=== PATIENT | male | born 1955 | race Caucasian/White ===

== ENCOUNTER 2022-03-24 11:13 | Emergency (ER) | payer BC, SELFPAY ==
[2022-03-24 11:55] VITALS: BP 130/80; PULSE 78; RESP 18; TEMP 36.8; O2SAT 98; BMI 27.3
[2022-03-24 12:03] VITALS: BP 130/80; PULSE 78; RESP 18; TEMP 36.8; O2SAT 98
--- NOTE | 2022-03-24 12:08 | EXP.UTC ---
Discharge Plan Referrals Follow up/Referrals: Bonnie Amezcua MD [Primary Care Provider] - See instructions Activity Restrictions/Add. Instructions Additional Instructions/Restrictions: You were tested for today for COVID19 your test result should be back in the next 24-48 hours, you may check your results on the [facility] My Health Portal Clinical Impressions Clinical Impression: Encounter for laboratory testing for COVID-19 virus Instructions Patient Instructions: COVID-19 Viral Test Discharge ED Provider: Gladys Barnard [facility] [place] General Stated complaint: covid test Mode of Arrival: Ambulatory Source of Information: Patient Limitations: No Limitations Time Seen by Provider: 03/24/22 12:08 Description of Symptoms (Recalled from Triage Doc. by RN): PATIENT NEEDING COVID TEST FOR SUGERY HEENT Symptoms (Recalled from RN notes): No Resp Symptoms (Recalled from RN notes): No Skin Symptoms (Recalled from RN notes): No MS Symptoms (Recalled from RN notes): No Functional Status (Recalled from RN notes): WNL History of Present Illness Provider Complaint: Patient states that he is needing a covid test for hip surgery denies any symptoms Related Data Allergies Allergy/AdvReac Type Severity Reaction Status Date / Time No Known Allergies Allergy Verified 03/24/22 12:03 Worker's Comp Is this a Worker's Comp case?: [facility] History Smoking Status: Never smoker alcohol intake: never current occupational status: disabled Travel in the last 8 weeks: None ROS Obtained: Yes All systems reviewed & no additional complaints except as documented and Yes Systems reviewed as appropriate & no additional complaints except as documented Constitutional Constitutional: Reports system reviewed and no additional complaints, except as documented and Reports as per HPI ENT Ears, Nose, Mouth, and Throat: Reports system reviewed and no additional complaints, except as documented and Reports as per HPI Cardiovascular Cardiovascular: Reports system reviewed and no additional complaints, except as documented and Reports as per HPI Respiratory Respiratory: Reports system reviewed and no additional complaints, except as documented and Reports as per HPI Physical Exam General General appearance: alert and in no apparent distress Respiratory Respiratory exam: Present normal lung sounds bilaterally; Absent respiratory distress Cardiovascular Cardiovascular exam: Present regular rate and normal rhythm Neurological Exam Neurological exam: Present alert and oriented X3 Medical Decision Making Jason Inquiry Pt receiving controlled substance: No Jason was queried for this patient: No Vital Signs: 03/24/22 11:55 03/24/22 12:03 Temperature 98.2 F 98.2 F Temperature Source Oral Pulse Rate 78 Pulse Rate [Right Brachial] 78 Respiratory Rate 18 18 Blood Pressure 130/80 Blood Pressure [Right Arm] 130/80 Blood Pressure Mean [Right Arm] 96 Blood Pressure Source [Right Arm] Automatic Cuff Blood Pressure Position [Right Arm] Sitting 02 Sat by Pulse Oximetry 98 Oxygen Delivery Method Room Air Orders (Tests/Meds): ORDERS Category Date Time Status Covid-19 Nasal PCR ([facility]) Routine Lab 03/24/22 11:55 Received
== END 2022-03-24 12:11 | disposition home or self-care (01) ==
LOC: UTC 11:19
PROVIDERS: Emergency Provider Nurse Practitioner; PCP Internal Medicine
DX: U07.1 COVID-19 (principal)
CPT/HCPCS: 99212; C9803; G0463; U0003; U0005